=== PATIENT | female | born 1950 | race Asian ===

== ENCOUNTER 2020-12-23 12:25 | Emergency (ER) | payer MEDICARE, MEDICAID ==
[~2020-12-23] VITALS: Ht 154.9 cm; Wt 54.4 kg
[2020-12-23 14:11] LABS: Alanine Aminotransferase 40 U/L (13-56); Albumin 3.6 g/dL (3.4-5.0); Anion Gap 11 (5-15); Aspartate Aminotransferase 55 U/L (15-37); BUN/Creatinine Ratio 22.1; Blood Alcohol < 3.0 mg/dL (0-5); Blood Urea Nitrogen 31 mg/dL (7-18); Calcium 9.2 mg/dL (8.5-10.1); Carbon Dioxide 21 mmol/L (21-32); Chloride 102 mmol/L (98-107); GFR African American 48 mL/min; GFR Non-African American 39 mL/min; Glucose 217 mg/dL (74-106); Magnesium 2.1 mg/dL (1.6-2.6); Potassium 4.4 mmol/L (3.5-5.1); Sodium 134 mmol/L (136-145)
[2020-12-23 14:16] LABS: Alkaline Phosphatase 77 U/L (45-117); Bilirubin, Total 0.3 mg/dL (0.2-1.0); Total Protein 8.2 g/dL (6.4-8.2)
[2020-12-23 14:20] LABS: Lactic Acid w/Reflex 2.9 mmol/L (0.4-2.0)
[2020-12-23 15:23] LABS: Basophils # (auto) 0.1 10 ^3/uL (0-0.2); Basophils % (auto) 0.5 % (0.0-2.0); Eosinophils # (auto) 0.3 10 ^3/uL (0-0.8); Hematocrit 30.6 % (36.0-46.0); Hemoglobin 10.1 g/dL (12.2-16.2); Lymphocytes # (auto) 2.1 10 ^3/uL (0.4-5.4); Lymphocytes % (auto) 15.1 % (10.0-50.0); Mean Corpuscular Hemoglobin 30.6 pg (28.0-32.0); Mean Corpuscular Hgb Conc. 33.1 g/dL (32.0-36.0); Mean Corpuscular Volume 92.4 fL (80.0-100.0); Monocytes # (auto) 0.7 10 ^3/uL (0-1.3); Monocytes % (auto) 4.9 % (0.0-12.0); Neutrophils # (auto) 10.7 10 ^3/uL (1.6-8.6); Neutrophils % (auto) 77.5 % (37.0-80.0); Nucleated Red Blood Cells % 0.1 %; Red Blood Cells 3.32 10^6/uL (4.0-5.20); Red Cell Distribution Width 12.4 % (11.8-14.3); White Blood Cell 13.8 10^3/uL (4.4-10.8)
[2020-12-23] MEDS ORDERED: ONDANSETRON HCL 4 MG/2 ML VIAL IV ONE (15:30)
[2020-12-23] MEDS ORDERED: ETOMIDATE (2MG/ML) 20ML VIAL IV ONE ×2 (16:23→16:30)
[2020-12-23] MEDS ORDERED: SUCCINYLCHOLINE CHLORIDE 20 MG/ML 10ML VIAL IV ONE ×2 (16:23→16:30)
[2020-12-23] MEDS ORDERED: MIDAZOLAM DRIP 50 mg/50mL 50 ML IV ONE (16:31)
[2020-12-23 16:34] VITALS: BP 132/51
== END 2020-12-23 16:35 | disposition short-term general hospital (02) ==
LOC: EDBD 12:25 → ER 12:25
DX: G93.41 Metabolic encephalopathy (principal); I62.00 Nontraumatic subdural hemorrhage, unspecified; E11.9 Type 2 diabetes mellitus without complications
CPT/HCPCS: 31500; 36415; 70450; 71045; 80053; 80320; 83605; 83735; 84484; 85025; 87040; 93005; 96365; 96375; 99291; J0330; J2250; J2405